=== PATIENT | male | born 1945 | race African-American/Black ===

== ENCOUNTER → 2019-10-14 | Day surgery (SDC) | payer OTHER ==
[~2019-10-14] MED LIST: LIDOCAINE VISCOUS 2% 20 ML UDC ONE; MIDAZOLAM 2 MG/2 ML VIAL ONE; fentaNYL 0.05 MG/ML VIAL ONE
== END | disposition home or self-care (01) ==
LOC: EEVIPCON 13:06 → MGI 13:06
PROVIDERS: ATTEND Preventive Medicine Preventive Medicine/Occupational Environmental Medicine
DX: J44.9 Chronic obstructive pulmonary disease, unspecified (principal); I38 Endocarditis, valve unspecified; E11.22 Type 2 diabetes mellitus with diabetic chronic kidney disease; N18.9 Chronic kidney disease, unspecified; J90 Pleural effusion, not elsewhere classified; Z98.890 Other specified postprocedural states; I48.91 Unspecified atrial fibrillation
CPT/HCPCS: 93313; J2250; J3010